=== PATIENT | female | born 1975 | race Caucasian/White ===

== ENCOUNTER 2019-01-30 13:43 | Emergency (ER) | payer OTHER ==
[~2019-01-30] VITALS: Ht 170.2 cm; Wt 88.5 kg
[2019-01-30 13:50] VITALS: BP 130/72
--- NOTE | 2019-01-30 14:18 | PHYS DOC ---
Past History Past Medical History: Asthma Past Surgical History: , Other Alcohol Use: Occasionally Additional Alcohol Information: EVERY EVENING Drug Use: None Adult General Chief Complaint Chief Complaint: HAND PROBLEM HPI HPI Patient is a 43 year old female who presents with complaint of right fourth finger pain. The patient states that she accidentally hit her fingers on her right hand against a wall behind her and states that her fingers hyperextended upon striking the wall. States that she had mild pain to all fingers, but started nose worsening pain and swelling to the base of her right fourth finger. States that she is having increased tenderness at the right fourth PIP joint. Notes that she has pain with flexion. Notes improved range of motion today compared to yesterday but still notes significant pain at the PIP joint. States that she took one dose of naproxen 220 mg earlier this morning. Has not taken any other medications today. Due to presence of pain and swelling, the patient came to have the finger evaluated for a possible fracture. Review of Systems Review of Systems Constitutional: Denies fever or chills [] Musculoskeletal: Right fourth finger pain[] Integument: Bruising and swelling to base of right fourth finger[] Neurologic: Denies headache, focal weakness or sensory changes [] All other systems were reviewed and found to be within normal limits, except as documented in this note. Current Medications Current Medications Current Medications Medications (Trade) Dose Ordered Sig/Chapin Start Time Stop Time Status Last Admin Dose Admin Lorazepam (Ativan Inj) 1 mg 1X STAT 01/30/19 14:08 01/30/19 14:12 DC Allergies Allergies Allergies Coded Allergies Type Severity Reaction Last Updated Verified Penicillins Allergy Intermediate 01/30/19 Yes ibuprofen Allergy Intermediate 01/30/19 Yes Physical Exam Physical Exam Constitutional: Alert, afebrile, no acute distress. [] Skin: Warm, dry, no erythema, no rash. [] Extremities: Right fourth finger held in extension with mild to moderate soft tissue swelling and ecchymosis along proximal phalanx and PIP joint, normal alignment, decreased flexion at right fourth PIP joint, normal capillary refill at right fourth fingertip and normal sensation, tenderness palpation along the medial and lateral joint space of right PIP joint, MCP, proximal phalanx, and middle phalanx of right fourth finger nontender. [] Neurologic: Alert and oriented X 3, normal motor function, normal sensory function, no focal deficits noted. [] Current Patient Data Vital Signs Vital Signs Date Time Temp Pulse Resp B/P (MAP) Pulse Ox O2 Delivery O2 Flow Rate FiO2 01/30/19 13:50 99.0 64 18 100 Room Air Lab Results Not performed EKG EKG Not performed[] Radiology/Procedures Radiology/Procedures [address] [address] IMAGING REPORT Signed PATIENT: MERCEDES CHACKO ACCOUNT: [id number] : 1975 LOCATION: ER AGE: 43 SEX: F EXAM STATUS: REG ER ORD. PHYSICIAN: VICKY DOMINGUEZ MD REASON: right 4th finger pain PROCEDURE: HAND RIGHT 3V EXAM: PA, oblique and lateral views of the right hand DATE: 01/30/2019 2:12 PM INDICATION: Right fourth finger pain COMPARISON: No Prior FINDINGS/ IMPRESSION: 1. There is no evidence for acute fracture or dislocation. 2. Punctate radiopaque density within the ulnar soft tissues at the level of the radiocarpal joint 3. Soft tissue swelling about the fourth finger. Electronically signed by: Grover Christian MD (01/30/2019 2:52 PM) [facility] DICTATED AND SIGNED BY: GROVER CHRISTIAN MD DATE: 01/30/19 1452 CC: VICKY DOMINGUEZ MD; PCP,NO ~ [] Course & Med Decision Making Course & Med Decision Making Pertinent Labs and Imaging studies reviewed. (See chart for details) X-rays negative for acute fracture. Small punctate radiodensity seen on x-ray is likely nonacute as patient displays no pain or acute injury in the vicinity of the noted object. Patient's middle finger was nessa taped to the ring finger. Advised gentle range of motion and continued RICE therapy to the affected digit. Recommended follow-up in one week with primary doctor if sym ptoms are not improving and return to emergency department for any worsening symptoms. Patient was understanding and in agreement with treatment plan.[] Dragon Disclaimer Dragon Disclaimer This electronic medical record was generated, in whole or in part, using a voice recognition dictation system. Departure Departure: Impression: Primary Impression: Finger sprain Disposition: HOME, SELF-CARE Condition: IMPROVED Referrals: PCP,NO (PCP) Patient Instructions: Finger Sprain Additional Instructions: Follow-up with your primary doctor in 1 week if symptoms are not improving. Return to emergency department for any worsening symptoms. Problem Qualifiers Primary Impression: Finger sprain Encounter type: initial encounter Finger: ring finger Sprain of finger site: interphalangeal joint Laterality: right Qualified Codes: S63.634A - Sprain of interphalangeal joint of right ring finger, initial encounter VICKY DOMINGUEZ MD Jan 30, 2019 14:18
--- NOTE | 2019-01-30 14:55 | RAD ---
EXAM: PA, oblique and lateral views of the right hand DATE: 01/30/2019 2:12 PM INDICATION: Right fourth finger pain COMPARISON: No Prior FINDINGS/ IMPRESSION: 1. There is no evidence for acute fracture or dislocation. 2. Punctate radiopaque density within the ulnar soft tissues at the level of the radiocarpal joint 3. Soft tissue swelling about the fourth finger. Electronically signed by: Grover Christian MD (01/30/2019 2:52 PM) [facility]
== END 2019-01-30 15:00 | disposition home or self-care (01) ==
LOC: ER 13:43
DX: S63.634A Sprain of interphalangeal joint of right ring finger, initial encounter (principal); J45.909 Unspecified asthma, uncomplicated; Z88.0 Allergy status to penicillin; Z88.6 Allergy status to analgesic agent; W22.01XA Walked into wall, initial encounter; Y93.89 Activity, other specified; Y92.89 Other specified places as the place of occurrence of the external cause; Y99.8 Other external cause status
CPT/HCPCS: 73130; 99284

== ENCOUNTER 2020-10-29 18:24 | Emergency (ER) | payer OTHER ==
[~2020-10-29] VITALS: Ht 170.2 cm; Wt 82.7 kg
--- NOTE | 2020-10-29 18:29 | PHYS DOC ---
Past History Past Medical History: Asthma Past Surgical History: , Other Alcohol Use: Occasionally Drug Use: None General Adult HPI: HPI: "I was opening a can of tuna for my cat... León Munroe... He is in [facility].. and I stabbed this finger with the knife tip..." Patient is a 45 year old female who presents with above hx and complaints of finger laceration to left index finger. Patient has a 1 cm laceration mid finger. Patient does have distal neurovascular. Range of motion. Laceration washed with soap and water. Laceration cleaned with Betadine and irrigated. Applied 2% lidocaine without epinephrine to site of laceration. We irrigated laceration with range of motion. Closed laceration to simple sutures of Vicryl 3 0 . Dressing applied with bacitracin. Patient keep finger clean and dry. Follow-up primary care. Return if any concerns. Apply Polysporin 4 times a day until healed. Sutures do not have to be removed. Patient's tetanus is updated. Patient return if any concerns. No recent travel. No severe ill contacts. Is up-to-date with vaccinations. No history immunosuppression. Do not wear rings on hand until adequate healing. Review of Systems: Review of Systems: Constitutional: Denies fever or chills Eyes: Denies change in visual acuity HENT: Denies nasal congestion or sore throat Respiratory: Denies cough or shortness of breath Cardiovascular: Denies chest pain or edema GI: Denies abdominal pain, nausea, vomiting, bloody stools or diarrhea : Denies dysuria Musculoskeletal: Denies back pain or joint pain Integument: Denies rash. Complains laceration left index finger as per HPI Neurologic: Denies headache, focal weakness or sensory changes Endocrine: Denies polyuria or polydipsia Lymphatic: Denies swollen glands Psychiatric: Denies depression or anxiety Family History: Family History: Noncontributory presentation Current Medications: Current Meds: Allergic to penicillin and ibuprofen Allergies: Allergies: Allergies Coded Allergies Type Severity Reaction Last Updated Verified Penicillins Allergy Intermediate 01/30/19 Yes ibuprofen Allergy Intermediate 01/30/19 Yes Physical Exam: PE: Constitutional: Well developed, well nourished, moderate acute distress, non- toxic appearance. [] HENT: Normocephalic, atraumatic, bilateral external ears normal, oropharynx moist, no oral exudates, nose normal. [] Eyes: PERRLA, EOMI, conjunctiva normal, no discharge. [] Neck: Normal range of motion, no tenderness, supple, no stridor. [] Cardiovascular:Heart rate regular rhythm, no murmur [] Lungs & Thorax: Bilateral breath sounds clear to auscultation [] Abdomen: Bowel sounds normal, soft, no tenderness, no masses, no pulsatile masses. [] Skin: Warm, dry, no erythema, no rash. [] Laceration as per HPI Back: No tenderness, no CVA tenderness. [] Extremities: No tenderness, no cyanosis, no clubbing, ROM intact, no edema. [] Neurologic: Alert and oriented X 3, normal motor function, normal sensory function, no focal deficits noted. [] Psychologic: Affect anxious, judgement normal, mood normal. [] EKG: EKG: [] Radiology/Procedures: Radiology/Procedures: [] Heart Score: C/O Chest Pain: N/A Risk Factors: Risk Factors: DM, Current or recent (<one month) smoker, HTN, HLP, family history of CAD, obesity. Risk Scores: Score 0 - 3: 2.5% MACE over next 6 weeks - Discharge Home Score 4 - 6: 20.3% MACE over next 6 weeks - Admit for Clinical Observation Score 7 - 10: 72.7% MACE over next 6 weeks - Early Invasive Strategies Course & Med Decision Making: Course & Med Decision Making Pertinent Labs and Imaging studies reviewed. (See chart for details) Laceration. Procedure note see HPI Impression: 1. Laceration left index finger [] Dragon Disclaimer: Dragon Disclaimer: This electronic medical record was generated, in whole or in part, using a voice recognition dictation system. Departure Departure: Referrals: PCP,NO (PCP) Dragon Disclaimer This chart was dictated in whole or in part using Voice Recognition software in a busy, high-work load, and often noisy Emergency Department environment. It may contain unintended and wholly unrecognized errors or omissions. Dragon Disclaimer This chart was dictated in whole or in part using Voice Recognition software in a busy, high-work load, and often noisy Emergency Department environment. It may contain unintended and wholly unrecognized errors or omissions. MARIANNE LAMB MD Oct 29, 2020 18:29
[2020-10-29] MEDS ORDERED: LIDOCAINE 2% 20 ML VIAL. ONE (18:38)
[2020-10-29] MEDS ORDERED: LIDOCAINE 2% 20 ML VIAL. IJ ONE (18:45)
[2020-10-29] MEDS ORDERED: MUPIROCIN 2% TOPICAL OINTMENT 22GM TUBE. TP SCH (18:45)
[2020-10-29] MEDS ORDERED: TETANUS AND DIPHTHERIA TOX/PF 0.5 ML VIAL. VAX IM ONE (19:15)
== END 2020-10-29 19:13 | disposition home or self-care (01) ==
LOC: ER 18:24
DX: S61.211A Laceration without foreign body of left index finger without damage to nail, initial encounter (principal); J45.909 Unspecified asthma, uncomplicated; Z88.0 Allergy status to penicillin; Z88.6 Allergy status to analgesic agent; W26.0XXA Contact with knife, initial encounter; Y93.89 Activity, other specified; Y92.89 Other specified places as the place of occurrence of the external cause; Y99.8 Other external cause status
CPT/HCPCS: 12001; 90471; 90714; 99283; J2001